=== PATIENT | female | born 1995 | race Caucasian/White ===

== ENCOUNTER 2025-03-01 08:00 | Emergency (ER) | payer OTHER, SELFPAY ==
[2025-03-01 08:41] LABS: Absolute Lymphocytes (CBC) 1.3 K/uL (0.7-4.9); Hematocrit 39.3 % (36.0-45.0); Hemoglobin 13.2 g/dL (12.0-15.0); MCH 29.9 pg (27.0-35.0); MCHC 33.7 g/dL (32.0-36.0); MCV 88.8 fL (80-100); MPV 8.2 fL (7.6-11.3); Nucleated RBC Absolute Count 0.0 (0-0); Nucleated Red Blood Cells % 0.0 % (0-0); RBC Red Blood Cell Count 4.42 M/uL (3.86-4.86); White Blood Count 5.20 thou/uL (4.3-10.9)
[2025-03-01 08:58] LABS: Urine Culture Reflex Order REFLEXED
[2025-03-01 09:36] LABS: ALT/SGPT 22.0 U/L (13-56); AST/SGOT 13.0 U/L (15-37); Albumin 3.1 g/dL (3.4-5.0); Albumin/Globulin Ratio 0.8 (1.1-1.8); Alkaline Phosphatase 61.0 U/L (45-117); Anion Gap 7.6 mEq/L (5.0-15.0); BUN Blood Urea Nitrogen 6.0 mg/dL (7-18); Globulin 3.9 g/dL (2.3-3.5); Glucose Level 88.0 mg/dL (74-106); HCG, Quantitative 3.0 mIU/mL (1-3); Potassium 3.6 mEq/L (3.5-5.1)
[2025-03-01 09:43] LABS: Urine Microscopic Reflex YN ORDER UMIC
--- NOTE | 2025-03-01 09:50 | RAD REPORT ---
EXAMINATION: US Transvaginal OB CLINICAL INDICATION: Female 29 years old.[facility] MAIN VAGINAL BLEEDING Bed Name: 15 TECHNIQUE: Real-time ultrasonography of the pelvis was performed transvaginally. Color and spectral D oppler evaluation of the ovaries was performed. COMPARISON: No prior exam. FINDINGS: UTERUS AND CERVIX: The uterus measures 7.2 cm in length. The uterus is normal. No masses seen The end ometrium is normal, 0.3 cm in thickness. RIGHT OVARY: Small mildly complex cyst or follicle in the right ovary measuring 9 mm without evidence of a pole, could represent a follicle or corpus luteum. The right ovary measures 2.7 x 1.7 x 1.8 cm. Normal color and spectral Doppler evaluation of the right ovary.. LEFT OVARY: Normal The left ovary measures 2.0 x 1.6 x 1.3 cm. Normal color and spectral Doppler evaluation of the left ovary.. FREE FLUID: No free fluid. IMPRESSION: No evidence of intrauterine . Indeterminate small right ovarian follicle versus corpus luteu m. No definite evidence of an ectopic , however close clinical follow-up and serial beta hCG trending recommended.
--- NOTE | 2025-03-01 10:00 | EDPHYS ---
Physician Documentation [facility] Name: Kellie Radford Age: 29 yrs Sex: Female : 1995 Arrival Date: 03/01/2025 Time: 08:00 Bed 15 Private MD: ED Physician Samuel William HPI: 03/01 08:19 This 29 yrs old Female presents to ER via Ambulatory with complaints of dr5 Vaginal Bleeding, + Preg <12wks. 08:19 The patient presents to the emergency department with vaginal bleeding, that is light, dr5 1 pad every 3 hours. Patient is a 29-year-old female with history of preeclampsia coming in with light vaginal bleeding onset yesterday. Patient denies any cramping or abdominal pain, nausea, vomiting or diarrhea. Patient reports that she had 3 confirmation test at home last week. Patient reports that she has a confirmation appointment on Wednesday03/07/25. . 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 - Social history:: Smoking status: Patient denies any tobacco usage or history of. ROS: 08:19 Constitutional: as per hpi dr5 Exam: 08:19 Constitutional: This is a well developed, well nourished patient who is awake, alert, dr5 and in no acute distress. Head/Face: Normocephalic, atraumatic. Eyes: Pupils equal round and reactive to light, extra-ocular motions intact. Lids and lashes normal. Conjunctiva and sclera are non-icteric and not injected. Cornea within normal limits. Periorbital areas with no swelling, redness, or edema. ENT: Nares patent. No nasal discharge, no septal abnormalities noted. Tympanic membranes are normal and external auditory canals are clear. Oropharynx with no redness, swelling, or masses, exudates, or evidence of obstruction, uvula midline. Mucous membranes moist. Chest/axilla: Normal chest wall appearance and motion. Nontender with no deformity. No lesions are appreciated. Cardiovascular: Regular rate and rhythm with a normal S1 and S2. Normal PMI, no JVD. No pulse deficits. Respiratory: Lungs have equal breath sounds bilaterally, clear to auscultation. No rales, rhonchi or wheezes noted. No increased work of breathing, no retractions or nasal flaring. Abdomen/GI: Soft, non-tender, non-distended Back: No spinal tenderness. No costovertebral tenderness. Full range of motion. Skin: Warm, dry with normal turgor. Normal color with no rashes, no lesions, and no evidence of cellulitis. MS/ Extremity: Pulses equal, no cyanosis. Neurovascular intact. Full, normal range of motion. Neuro: Awake and alert, GCS 15, oriented to person, place, time, and situation. Cranial nerves II-XII grossly intact. Motor strength 5/5 in all extremities. Sensory grossly intact. Cerebellar exam normal. Normal gait. Vital Signs: 08:09 Weight 88.45 kg; Height 5 ft. 10 in. ; Pain 0/10; ss 08:10 BP 108 / 65; Pulse 72; Resp 18 S; Temp 98.6(O); Pulse Ox 98% on R/A; aa5 10:00 BP 124 / 84; Pulse 76; Resp 18 S; Pulse Ox 97% on R/A; aa5 08:09 Body Mass Index 27.98 (88.45 kg, 177.8 cm) ss 08:09 Pain Scale: Adult ss MDM: 08:03 Medical Screening Exam initiated dov 10:01 Differential diagnosis: threatened Ab, inevitable Ab, ectopic , UTI, Anemia. dr5 Data reviewed: vital signs, nurses notes, lab test result(s), Beta HCG: HCG of 3 CBC, white blood cell count, hemoglobin, hematocrit, platelets, electrolytes, sodium, potassium, chloride, serum bicarbonate, BUN, creatinine, serum glucose, urinalysis, bacteruria, radiologic studies, ultrasound. Consideration of Admission/Observation Escalation of care including admission/observation considered. Escalation considered patient found to have ectopic . Historians other than the Patient: Spouse/Significant Other: Significant other at bedside. Care significantly affected by the following chronic conditions: Preeclampsia. Care significantly affected by the following Social Determinants of Health: Poor access to healthcare and/or lack of insurance, Poor access to transportation, Problems related to employment. Counseling: I had a detailed discussion with the patient and/or guardian regarding the historical points, exam findings, and any diagnostic results supporting the discharge/admit diagnosis, the presence of at least one elevated blood pressure reading (>120/80) during this emergency department visit, lab results, radiology results, the need for outpatient follow up, for definitive care, an OB/Gyne specialist. Special discussion: I discussed with the patient/guardian in detail that at this point there is no indication for admission to the hospital. It is understood, however, that if the symptoms persist or worsen the patient needs to return immediately for re-evaluation. Based on the history and exam findings, there is no indication for further emergent testing or inpatient evaluation. I discussed with the patient/guardian the need to see the OB Gyne specialist for further evaluation of the symptoms. ED course: Will have patient return in 48 hours for repeat hCG and ultrasound. Patient did not have any pain during ER stay. Will cover patient for urinary infection with Keflex. All question answered. Strict ER precautions given.. 16:09 ED course: Lab reports that patient is O+ on her type and screen. Lab also reports that dr5 this is different from her previous type and screen. I called patient and she stated that she had her delivery at [facility]. Lab is going to call to verify type and screen. Patient reports that she thinks that she is O+ but does not have her blood drawn. Will recollect in 48 hours.. 03/01 08:10 Order name: Abo/rh Typing [facility] 03/01 08:10 Order name: CBC with Diff; Complete Time: 08:58 [facility] 03/01 08:10 Order name: Quantitative Hcg; Complete Time: 09:36 [facility] 03/01 08:10 Order name: UA Rfx Sandip Cult if indicated; Complete Time: 09:44 [facility] 03/01 08:10 Order name: CMP; Complete Time: 09:36 [facility] 03/01 09:01 Order name: Urine Culture EDAZ 03/01 08:10 Order name: US Transvaginal Ob; Complete Time: 09:53 [facility] 03/01 08:10 Order name: IV Saline Lock; Complete Time: : [facility] 03/01 08:10 Order name: Labs collected and sent; Complete Time: : dr5 03/01 08:10 Order name: NPO; Complete Time: dr5 03/01 08:40 Order name: Labs - recollect needed: green; Complete Time: 09:22 bc6 03/01 09:17 Order name: Labs - recollect needed: ABO/purple; Complete Time: : bc6 Administered Medications: No medications were administered Disposition Summary: 03/01/25 10:00 Discharge Ordered Notes: Location: Home dr5 Condition: Stable dr5 Diagnosis - UTI/ Urinary tract infection, site not specified dr5 - Other specified abnormal uterine and vaginal bleeding dr5 Followup: dr5 - With: Emergency Department - When: As needed - Reason: Worsening of condition Followup: dr5 - With: Private Physician - When: 1 - 2 days - Reason: Recheck today's complaints, Continuance of care, Re-evaluation by your physician Discharge Instructions: - Discharge Summary Sheet dr5 - Urinary Tract Infection, Adult, [id number] dr5 Forms: - Work release form dr5 - Medication Reconciliation Form dr5 - Antibiotic Education dr5 - Patient Portal Instructions dr5 - Leadership Thank You Letter dr5 Prescriptions: - Cephalexin 500 mg Oral Capsule - take 1 capsule ORAL route every 12 hours for 10 days; 20 capsule; Refills: 0, dr5 Product Selection Permitted Addendum: 03/02/2025 13:32 Co-signature as Attending Physician, Samuel William MD I agree with the assessment and c chua plan of care. Signatures: Dispatcher [employer] Samuel Seals MD MD cha Blanchard, Shelby, RN RN Lucretia Hinton 6 Paulo Triplett, HOEING ROW BOSS-C HOEING ROW BOSS-Cdr5 Corrections: (The following items were deleted from the chart) 03/01 08:11 08:10 ABO/RH TYPING+BB.LAB.BRZ ordered. EDMS EDMS 08:11 08:10 CBC+H.LAB.BRZ ordered. EDMS EDMS 08:11 08:10 QUANTITATIVE HCG+C.LAB.BRZ ordered. EDMS EDMS 08:11 08:10 UA Rfx Sandip Cult if indicated+U.LAB.BRZ ordered. EDMS EDMS 08:11 08:10 COMPREHENSIVE METABOLIC PANEL+C.LAB.BRZ ordered. EDMS EDMS 08:11 08:11 Transvaginal Ob+US.RAD.BRZ ordered. EDMS EDMS
--- NOTE | 2025-03-01 10:00 | ER ---
Nurse's Notes [facility] Name: Kellie Radford Age: 29 yrs Sex: Female : 1995 Arrival Date: 03/01/2025 Time: 08:00 Bed 15 Private MD: Diagnosis: UTI/ Urinary tract infection, site not specified;Other specified abnormal uterine and vaginal bleeding Presentation: 03/01 08:09 Chief complaint: Patient states: positive UPT 1.5 weeks ago. Pt reports vaginal ss bleeding since yesterday that is, "like a period.". Coronavirus screen: Client denies travel out of the [place] in the last 14 days. Ebola Screen: Patient denies exposure to infectious person. Patient denies travel to an Ebola-affected area in the 21 days before illness onset. Initial Sepsis Screen: Does the patient meet any 2 criteria? No. Patient's initial sepsis screen is negative. Does the patient have a suspected source of infection? No. Patient's initial sepsis screen is negative. Risk Assessment: Do you want to hurt yourself or someone else? Patient reports no desire to harm self or others. Onset of symptoms was February 28, 2025. 08:09 Method Of Arrival: Ambulatory ss 08:09 Acuity: TACHO 3 ss INSURANCE FOLLOW UP REP: 08:11 LMP 01/03/2025, unknown ss 08:19 3, Full Term 1, Living 1, LMP 01/05/2025, unknown dr5 Historical: - Allergies: 08:11 Codeine; ss 08:11 lavender; ss - Home Meds: 08:11 None [Active]; ss - PMHx: 08:11 PREECLAMPSIA; resolved; ss - PSHx: 08:11 (PREECLAMPSIA); Cholecystectomy; ss - Infectious Disease History:: Denies. - Social history:: Smoking status: Patient denies any tobacco usage or history of. Screenin:10 [facility] ED Fall Risk Assessment (Adult) History of falling in the last 3 months, aa5 including since admission No falls in past 3 months (0 pts) Confusion or Disorientation No (0 pts) Intoxicated or Sedated No (0 pts) Impaired Gait No (0 pts) Mobility Assist Device Used No (0 pt) Altered Elimination No (0 pt) Score/Fall Risk Level 0 - 2 = Low Risk Oriented to surroundings, Maintained a safe environment, Educated pt \\T\\ family on fall prevention, incl call for assistance when getting out of bed, Assessed \\T\\ reinforced patient's understanding of fall precautions. Abuse screen: Denies threats or abuse. Nutritional screening: No deficits noted. Tuberculosis screening: No symptoms or risk factors identified. Assessment: 08:15 General: Appears comfortable, Behavior is calm, cooperative. Pain: Denies pain. Neuro: aa5 Level of Consciousness is awake, alert, obeys commands, Oriented to person, place, time, situation. Cardiovascular: Patient's skin is warm and dry. Respiratory: Airway is patent Respiratory effort is even, unlabored, Respiratory pattern is regular, symmetrical. GI: No signs and/or symptoms were reported involving the gastrointestinal system. : Reports vaginal bleeding that is bright red, moderate flow, since yesterday. EENT: No signs and/or symptoms were reported regarding the EENT system. Derm: Skin is pink, warm \\T\\ dry. Musculoskeletal: Range of motion: intact in all extremities. 09:30 Reassessment: Patient is alert, oriented x 3, equal unlabored respirations, skin aa5 warm/dry/pink. 10:18 Reassessment: Patient is alert, oriented x 3, equal unlabored respirations, skin aa5 warm/dry/pink. Vital Signs: 08:09 Weight 88.45 kg; Height 5 ft. 10 in. ; Pain 0/10; ss 08:10 BP 108 / 65; Pulse 72; Resp 18 S; Temp 98.6(O); Pulse Ox 98% on R/A; aa5 10:00 BP 124 / 84; Pulse 76; Resp 18 S; Pulse Ox 97% on R/A; aa5 08:09 Body Mass Index 27.98 (88.45 kg, 177.8 cm) ss 08:09 Pain Scale: Adult ss ED Course: 08:02 Patient arrived in ED. mr 08:02 Paulo Triplett FNP-C is PHCP. dr5 08:02 Samuel William MD is Attending Physician. dr5 08:11 Triage completed. ss 08:11 Arm band placed on left wrist. ss 08:11 Patient has correct armband on for positive identification. Placed in gown. Bed in low aa5 position. Call light in reach. Side rails up X2. Adult w/ patient. Pulse ox on. NIBP on. 08:14 Sara Kiser, RN is Primary Nurse. aa5 08:25 Urine collected: clean catch specimen, sent to lab. Inserted saline lock: 20 gauge in aa5 right antecubital area, using aseptic technique. Blood collected. Flushed with 10 mL NS. 08:58 No provider procedures requiring assistance completed. aa5 09:10 US Transvaginal Ob In Process Unspecified. EDMS 09:50 Lab(s) recollected, by me, sent to lab. nh2 10:18 IV discontinued, intact, bleeding controlled, No redness/swelling at site. Pressure aa5 dressing applied. Administered Medications: No medications were administered Medication: 08:57 VIS not applicable for this client. aa5 Outcome: 10:00 Discharge ordered by . dr5 10:18 Discharged to home ambulatory, with significant other, aa5 10:18 Condition: stable 10:18 Discharge instructions given to patient, Instructed on discharge instructions, follow up and referral plans. medication usage, Demonstrated understanding of instructions, follow-up care, medications, Prescriptions given X 1, 10:20 Patient left the ED. aa5 Signatures: Dispatcher [employer] EDIL SilvaMarichuy desai, Reg Reg mr Sara Kiser, RN RN aa5 Loyda Mckoy, LEVON RN Ricardo Baldwin Jr, RN RN nh2 Paulo Triplett, DISPATCH SPECIALIST-C DISPATCH SPECIALIST-Cdr5
[2025-03-01 17:26] VITALS: TEMP 98.6
[2025-03-01 17:43] VITALS: BP 124/84; O2SAT 97
== END 2025-03-01 10:20 | disposition home or self-care (01) ==
LOC: ER 08:00
DX: N39.0 Urinary tract infection, site not specified (principal); N93.8 Other specified abnormal uterine and vaginal bleeding
CPT/HCPCS: 36415; 76817; 80053; 81001; 84702; 85025; 86900; 86901; 87077; 87086; 87088; 87186; 99284